=== PATIENT | male | born 1965 | race Two or more races ===

== ENCOUNTER 2023-11-01 09:31 | Outpatient (CLI) | payer MEDICAID | END 2023-11-01 23:59 | disposition home or self-care (01) | LOC: CARD DIAG 09:31 | PROVIDERS: ATTEND Physician Assistant Medical | DX: I34.81 Nonrheumatic mitral (valve) annulus calcification (principal); Q21.12 Patent foramen ovale; R94.31 Abnormal electrocardiogram [ECG] [EKG] | CPT/HCPCS: 93306 ==